=== PATIENT | female | born 1950 | race Two or more races ===

== ENCOUNTER → 2024-01-31 | Emergency (ER) | payer OTHER ==
[~2024-01-31] VITALS: Ht 160 cm; Wt 70.8 kg
[~2024-01-31] MED LIST: AMIODARONE HCL100 MG; CARVEDILOL6.25 MG; COZAAR100 MG; KETOROLAC TROMETHAMINE 30 MG VIAL IM ONE; XARELTO15 MG; ZYLOPRIM100 M1
== END | disposition home or self-care (01) ==
LOC: ER 21:33
DX: M79.671 Pain in right foot (principal); T63.691A Toxic effect of contact with other venomous marine animals, accidental (unintentional), initial encounter